=== PATIENT | female | born 1960 | race Caucasian/White ===

== ENCOUNTER → 2020-12-17 | Outpatient (CLI) | payer MEDICARE ==
[~2020-12-17] MED LIST: ADVAIR HFA 115-12 GM INH; ALIGN4 MG PO; ASPIRIN81 MG PO; AZELASTINE137 MCG/0.; AZITHROMYCIN250 MG PO; BENADRYL25 M1 PO; BIOTIN2500 MCG PO; CALCIUM ACETAT667 M1 PO; CARAFATE1 GM PO; CARVEDILOL3.125 MG PO; CYMBALTA30 MG PO; DILAUDID4 MG PO; GABAPENTIN100 MG PO; LEVOTHYROXINE25 MCG PO; LEVOTHYROXINE75 MCG PO; MAGNESIUM OXID400 MG PO; MIRTAZAPINE15 MG PO; MORPHINE SULFAT30 M2 PO; MULTI VITAMIN PO; NYSTATIN100000 UNI PO; PEPCID20 MG PO; PROBIOTIC & AC1 EACH PO; SPIRIVA18 MCG INH; SYMBICORT 16010.2 GM; TRAZODONE HCL50 MG PO; VITAMIN C1000 MG PO; linzess PO
[2020-12-17 09:50] LABS: ABG HCO3 34 mmol/L (22-26); ABG PCO2 55 mmHg (35-45); ABG PO2 86 mmHg (80-105); ABG TCO2 36
== END ==
LOC: RESP 09:08
PROVIDERS: ATTEND Internal Medicine
DX: J44.9 Chronic obstructive pulmonary disease, unspecified (principal); J96.10 Chronic respiratory failure, unspecified whether with hypoxia or hypercapnia
CPT/HCPCS: 36415; 36600; 82805

== ENCOUNTER 2021-08-22 13:57 | Emergency (ER) | payer MEDICARE ==
[~2021-08-22] VITALS: Ht 167.6 cm; Wt 67.1 kg
[2021-08-22] MEDS ORDERED: DEXAMETHASONE SOD PHOS 10 MG/1 ML VIAL IM ONE (14:15)
[2021-08-22] MEDS ORDERED: ALBUTEROL1.25 MG/3 NEB (15:37)
== END 2021-08-22 15:41 | disposition home or self-care (01) ==
LOC: ER 14:49
DX: J44.0 Chronic obstructive pulmonary disease with (acute) lower respiratory infection (principal); J18.9 Pneumonia, unspecified organism; J44.1 Chronic obstructive pulmonary disease with (acute) exacerbation; Z99.81 Dependence on supplemental oxygen; Z91.012 Allergy to eggs; Z88.0 Allergy status to penicillin; Z88.2 Allergy status to sulfonamides; Z88.8 Allergy status to other drugs, medicaments and biological substances; Z91.018 Allergy to other foods; Z91.048 Other nonmedicinal substance allergy status
CPT/HCPCS: 71045; 99283; J1100